=== PATIENT | male | born 1960 | race American Indian/Alaskan Native ===

== ENCOUNTER 2017-01-01 09:56 | Outpatient (CLI) | payer OTHER ==
--- NOTE | 2017-01-01 10:33 | XRay Report ---
Chest 2 views: History: Cough. Findings: Normal cardiomediastinal silhouette. Trachea is midline. No consolidation, pneumothorax or pleural effusion. Linear density left lower lobe adjacent to the diaphragm probably discoid atelectasis. Impression: Discoid atelectasis left lower lobe.
== END 2017-01-01 09:57 | disposition home or self-care (01) ==
LOC: SPVIMAG 09:56
DX: J98.11 Atelectasis (principal)
CPT/HCPCS: 71020

== ENCOUNTER 2019-09-30 14:51 | Outpatient (CLI) | payer OTHER ==
--- NOTE | 2019-09-30 16:25 | XRay Report ---
CHEST PA AND LATERAL VIEWS INDICATION: COUGH. COMPARISON: 01/01/2017. FINDINGS: Support devices: None. Heart: Stable. Lungs/Pleura: No acute pulmonary or pleural findings. Ill-defined density in the left lower hemithora x may be due to prominent cardiophrenic fat or mild atelectasis. This has a similar appearance to the remote prior exam. IMPRESSION: 1. No acute findings. Signer Name: Romario Rm MD Signed: 09/30/2019 4:21 PM Workstation Name: [id number]
== END 2019-09-30 14:52 | disposition home or self-care (01) ==
LOC: SPVIMAG 14:51
PROVIDERS: ATTEND Urology
DX: R05 Cough (principal)
CPT/HCPCS: 71046

== ENCOUNTER 2019-12-27 13:41 | Outpatient (CLI) | payer OTHER ==
--- NOTE | 2019-12-27 14:30 | XRay Report ---
CHEST 2 VIEWS INDICATION: POST PNEUMONIA. COMPARISON: 09/30/2019 FINDINGS: Support devices: None. Heart: Within normal limits. Pulmonary vasculature: Normal. Lungs/pleura: No acute air space or interstitial disease. No pneumothorax. Additional findings: A less prominent left basal epicardial opacity is likely a benign epicardial fat pad. IMPRESSION: 1. No atelectasis or pneumonia. 2. Benign left epicardial fat. Signer Name: David Santiago MD Signed: 12/27/2019 2:25 PM Workstation Name: [id number]
== END 2019-12-27 13:42 | disposition home or self-care (01) ==
LOC: SPVIMAG 13:41
PROVIDERS: ATTEND Urology
DX: Z87.01 Personal history of pneumonia (recurrent) (principal)
CPT/HCPCS: 71046